=== PATIENT | female | born 1955 | race Asian ===

== ENCOUNTER → 2021-05-29 | Outpatient (CLI) | payer OTHER ==
[~2021-05-29] MED LIST: ASPI-989 PO; FAMO20 PO; ISOS30TA92 PO; LISI-894 PO; METF-960 PO; METO25 PO; PRAV10TA39 PO
== END | disposition home or self-care (01) ==
LOC: RADMN 10:22
PROVIDERS: ATTEND Internal Medicine Cardiovascular Disease
DX: I11.9 Hypertensive heart disease without heart failure (principal); E11.9 Type 2 diabetes mellitus without complications; S22.32XS Fracture of one rib, left side, sequela; R07.81 Pleurodynia; R09.1 Pleurisy; X58.XXXS Exposure to other specified factors, sequela
CPT/HCPCS: 71111